=== PATIENT | female | born 1985 | race Caucasian/White ===

== ENCOUNTER 2018-04-09 23:56 | Emergency (ER) | payer SELFPAY ==
[~2018-04-09] VITALS: Ht 162.6 cm; Wt 86.3 kg
[~2018-04-09 23:56] MED LIST: NO HOME MEDS
[2018-04-10 01:19] VITALS: BP 126/83
== END 2018-04-10 01:21 | disposition home or self-care (01) | DRG 563 ==
LOC: ED 23:56
DX: S92.512A Displaced fracture of proximal phalanx of left lesser toe(s), initial encounter for closed fracture (principal); W22.03XA Walked into furniture, initial encounter; Y93.89 Activity, other specified; Y92.009 Unspecified place in unspecified non-institutional (private) residence as the place of occurrence of the external cause